=== PATIENT | male | born 1975 | race African-American/Black ===

== ENCOUNTER 2016-12-23 19:00 | Emergency (ER) | payer SELFPAY ==
[~2016-12-23] VITALS: Ht 167.6 cm; Wt 100.0 kg
[~2016-12-23 19:00] MED LIST: FIORTAB4 PO; IBUP-232 PO; LEXA10TA PO; LORT7.5T3 PO; Z.0.NO CURRENT MEDS
[2016-12-23 19:02] VITALS: BP 148/78; PULSE 85; RESP 16; TEMP 98.5; O2SAT 99
[2016-12-23] MEDS ORDERED: SODIUM CHLOR 0.9% 1000 ML INJ 1,000 ML IV SCH (21:19)
--- NOTE | 2016-12-23 21:24 | PD ---
HPI Chief Complaint: Injury Time Seen by Provider: 21:10 Travel History International Travel<30 days: No Contact w/Intl Traveler<30days: No Traveled to known affect area: No History of Present Illness HPI 41-year-old male presents for evaluation of right foot pain. Symptoms started 5 days ago. He reports pain, swelling, redness of the right foot spontaneously with no trauma. Pain is a throbbing pain that is constant. He endorses subjective fevers at home today. He has never had this problem before. No history of gout. No other complaints PFSH Past Medical History Arthritis: No Asthma: No Autoimmune Disease: No Blood Disorders: No Anxiety: Yes Depression: Yes Heart Rhythm Problems: No Cancer: No Cardiovascular Problems: No High Cholesterol: No Chemotherapy: No Chest Pain: Yes Congestive Heart Failure: No COPD: No Cerebrovascular Accident: No Diabetes: No Diminished Hearing: No Endocrine: No GERD: No Glaucoma: No Genitourinary: No Headaches: No Hepatitis: No Hiatal Hernia: No Hypertension: No Immune Disorder: No Kidney Stones: No Musculoskeletal: No Neurologic: No Psychiatric: Yes Reproductive: No Respiratory: No Migraines: Yes Myocardial Infarction: No Radiation Therapy: No Renal Failure: No Seizures: Yes Sickle Cell Disease: No Sleep Apnea: No Thyroid Disease: Yes Ulcer: No Past Surgical History Abdominal Surgery: No AICD: No Appendectomy: No Arteriovenous Shunt: No Cardiac Surgery: No Cholecystectomy: No Ear Surgery: No Endocrine Surgery: No Eye Surgery: No Genitourinary Surgery: No Gynecologic Surgery: No Insulin Pump: No Joint Replacement: No Pacemaker: No Social History Alcohol Use: Yes (SOCIAL EVENTS) Tobacco Use: Yes (2 PPD) Substance Use: No (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 Examination the right foot reveals erythematous changes to the skin on the dorsal aspect of the right foot. There is some maceration and skin breakdown in the interdigital webspace between the right fourth and fifth digits which may be the source of infection. Wound culture performed. HEAD: Atraumatic. Normocephalic. EYES: Pupils equal and round. No scleral icterus. No injection or drainage. ENT: No nasal bleeding or discharge. Mucous membranes pink and moist. NECK: Trachea midline. No JVD. CARDIOVASCULAR: Regular rate and rhythm. No murmur appreciated. RESPIRATORY: No accessory muscle use. Clear to auscultation. Breath sounds equal bilaterally. GASTROINTESTINAL: Abdomen soft, non-tender, nondistended. Hepatic and splenic margins not palpable. MUSCULOSKELETAL: Skin as noted above with generalized tenderness to palpation of the dorsal right foot. No calf or thigh tenderness. No inguinal lymphadenopathy. 2+ dorsalis pedis and posterior tibial pulses. NEUROLOGICAL: Awake and alert. No obvious cranial nerve deficits. Motor grossly within normal limits. Normal speech. Data Data Last Documented VS Vital Signs Date Time Temp Pulse Resp B/P (MAP) Pulse Ox O2 Delivery O2 Flow Rate FiO2 12/23/16 21:26 Room Air 12/23/16 19:02 98.5 85 16 148/78 (101) 99 Orders Orders Comprehensive Metabolic Panel (12/23/16 21:19) Foot, Complete ([id number]) (12/23/16 ) Wound Culture And Gram Stain (12/23/16 21:19) Lactic Acid Sepsis Protocol (12/23/16 21:19) Blood Culture (12/23/16 21:19) Iv Access Insert/Monitor (12/23/16 21:19) Sodium Chlor 0.9% 1000 Ml Inj (Ns 1000 M (12/23/16 21:19) Ketorolac Inj (Toradol Inj) (12/23/16 21:30) Complete Blood Count With Diff (12/23/16 21:42) Vancomycin Inj (Vancomycin Inj) (12/23/16 22:30) Labs Laboratory Tests Test 12/23/16 21:40 White Blood Count 6.1 TH/MM3 Red Blood Count 4.67 MIL/MM3 Hemoglobin 13.0 GM/DL Hematocrit 39.7 % Mean Corpuscular Volume 85.1 FL Mean Corpuscular Hemoglobin 27.9 PG Mean Corpuscular Hemoglobin Concent 32.8 % Red Cell Distribution Width 14.9 % Platelet Count 287 TH/MM3 Mean Platelet Volume 8.2 FL Neutrophils (%) (Auto) 64.3 % Lymphocytes (%) (Auto) 25.6 % Monocytes (%) (Auto) 7.9 % Eosinophils (%) (Auto) 1.5 % Basophils (%) (Auto) 0.7 % Neutrophils # (Auto) 3.9 TH/MM3 Lymphocytes # (Auto) 1.6 TH/MM3 Monocytes # (Auto) 0.5 TH/MM3 Eosinophils # (Auto) 0.1 TH/MM3 Basophils # (Auto) 0.0 TH/MM3 CBC Comment DIFF FINAL Differential Comment Blood Urea Nitrogen 14 MG/DL Creatinine 1.00 MG/DL Random Glucose 92 MG/DL Total Protein 7.1 GM/DL Albumin 3.5 GM/DL Calcium Level 9.0 MG/DL Alkaline Phosphatase 92 U/L Aspartate Amino Transf (AST/SGOT) 19 U/L Alanine Aminotransferase (ALT/SGPT) 24 U/L Total Bilirubin 0.1 MG/DL Sodium Level 137 MEQ/L Potassium Level 4.6 MEQ/L Chloride Level 104 MEQ/L Carbon Dioxide Level 27.6 MEQ/L Anion Gap 5 MEQ/L Estimat Glomerular Filtration Rate 100 ML/MIN Lactic Acid Level 0.8 mmol/L [facility] Medical Decision Making Medical Screen Exam Complete: Yes Emergency Medical Condition: Yes Medical Record Reviewed: Yes Differential Diagnosis Cellulitis, osteomyelitis, fracture, gouty arthritis Narrative Course 41-year-old male with spontaneous right foot pain and swelling for 5 days. Examination reveals cellulitic changes on the dorsal right foot, some skin maceration/breakdown in the interdigital webspace between the fourth and fifth digits which may be the source of the infection. A wound culture was performed. Plan is for basic lab work, foot x-ray, IV fluids, Toradol. The patient's blood work and imaging studies were normal. The patient was given a dose of IV vancomycin and he'll be discharged with Bactrim and Keflex. Discussed signs and symptoms that would warrant returning to the emergency room. Diagnosis Primary Impression: Cellulitis of right foot Additional Instructions: Antibiotics as prescribed. Warm compresses several times a day 10-15 minutes at a time. Return for evidence of worsening infection. Med/Other Pt SpecificInfo: Prescription(s) given Scripts Cephalexin (Keflex) 500 Mg Cap 500 MG PO Q8H for Infection, #30 CAP 0 Refills Prov: BrowningAshley DO 12/23/16 Sulfamethoxazole-Trimethoprim (Bactrim DS) 800-160 Mg Tab 1 TAB PO BID for Infection, #20 TAB 0 Refills Prov: Ashley Browning 12/23/16 Disposition: 01 DISCHARGE HOME Condition: Stable Rai Garsia Dec 23, 2016 21:24
[2016-12-23] MEDS ORDERED: KETOROLAC TROMETHAMINE 30 MG/ML (IVP) VIAL IV PUSH ONE (21:30)
--- NOTE | 2016-12-23 21:47 | RADRPT ---
EXAM DATE/TIME: 12/23/2016 21:32 [facility] COMPARISON: No previous studies available for comparison. INDICATIONS : Right foot swelling. MEDICAL HISTORY : None. SURGICAL HISTORY : None. ENCOUNTER: Initial ACUITY: 1 day PAIN SCORE: 0/10 LOCATION: Right foot FINDINGS: No definite fractures, or dislocations are identified. No definite lytic or sclerotic lesion is seen . Calcaneal spur is present at the attachment site of the plantar aponeurosis. CONCLUSION: Unremarkable study except for calcaneal spur. Brayan Li MD on December 23, 2016 at 21:45 Board Certified Radiologist. This report was verified electronically.
[2016-12-23 22:22] LABS: ANION GAP 5 MEQ/L (5-15); AST (GOT) 19 U/L (15-37); BICARBONATE 27.6 MEQ/L (21.0-32.0); BLOOD UREA NITROGEN 14 MG/DL (7-18); CHLORIDE 104 MEQ/L (98-107); GLOMERULAR FILTRATION RATE 100 ML/MIN (>89); POTASSIUM 4.6 MEQ/L (3.5-5.1); SODIUM (NA) 137 MEQ/L (136-145)
[2016-12-23 22:23] LABS: ALT (GPT) 24 U/L (12-78)
[2016-12-23 22:25] LABS: ALKALINE PHOSPHATASE 92 U/L (45-117); TOTAL BILIRUBIN ADULT 0.1 MG/DL (0.2-1.0)
[2016-12-23] MEDS ORDERED: VANCOMYCIN INJ 1,000 MG in SODIUM CHLOR 0.9% 250 ML INJ 250 ML IV ONE (22:30)
[2016-12-23 22:31] LABS: AUTOMATED NEUTROPHIL # 3.9 TH/MM3 (1.8-7.7); BASOPHIL % 0.7 % (0.0-2.0); EOSINOPHIL # 0.1 TH/MM3 (0-0.4); EOSINOPHIL % 1.5 % (0.0-4.0); HEMATOCRIT 39.7 % (39.0-51.0); HEMO FLAGS DIFF FINAL; LYMPH % 25.6 % (9.0-44.0); LYMPHOCYTE # 1.6 TH/MM3 (1.0-4.8); MEAN CELL VOLUME 85.1 FL (80.0-100.0); MEAN CORPUSCULAR HEMOGLOBIN 27.9 PG (27.0-34.0); MEAN CORPUSCULAR HGB CONC 32.8 % (32.0-36.0); MONO % 7.9 % (0.0-8.0); NEUT % 64.3 % (16.0-70.0); PLATELET COUNT 287 TH/MM3 (150-450); RED BLOOD COUNT 4.67 MIL/MM3 (4.50-5.90); RED CELL DISTRIBUTION WIDTH 14.9 % (11.6-17.2); WHITE BLOOD COUNT 6.1 TH/MM3 (4.0-11.0)
[2016-12-23] MEDS ORDERED: CEPH-460 PO (22:33)
[2016-12-23] MEDS ORDERED: BACT800T5 PO (22:33)
[2016-12-24 00:32] VITALS: BP 126/75
== END 2016-12-24 01:03 | disposition home or self-care (01) ==
LOC: NEPD 19:00
DX: L03.115 Cellulitis of right lower limb (principal); B96.4 Proteus (mirabilis) (morganii) as the cause of diseases classified elsewhere; F17.290 Nicotine dependence, other tobacco product, uncomplicated
CPT/HCPCS: 73630; 80053; 83605; 85025; 86403; 87040; 87070; 87077; 87186; 96361; 96365; 96366; 96375; 99284; E0113; J1885; J3370; J7030; J7050; 87205